=== PATIENT | female | born 1960 | race Caucasian/White ===

== ENCOUNTER 2017-12-15 02:22 | Outpatient (RCR) | payer MEDICAID, SELFPAY ==
[2017-12-15] MEDS: Normal Saline Flush 10 ML SYR IVP (11:45)
[2017-12-15] MEDS: Heparin 500 UNITS/5 ML SYRINGE IV (11:45)
[2017-12-15 11:59] LABS: Abs Immature Grans 0.02 k/cumm (0.0-0.09); Absolute Basophil Count 0.05 k/cumm (0.0-0.2); Absolute Eosinophil Count 0.35 k/cumm (0.0-0.7); Absolute Lymphocyte Count 3.07 k/cumm (1.2-3.4); Absolute Monocyte Count 0.82 k/cumm (0.11-0.7); Absolute Neutrophil Count 5.37 k/cumm (1.2-6.7); Basophils % 0.5; Eosinophils % 3.6; HCT 36.2 % (36.0-46.0); HGB 11.4 g/dL (12.0-15.5); Immature Grans % 0.2; Lymphocytes % 31.7; Mean Corp. HGB Concentration 31.5 g/dL (32.0-36.0); Mean Corpuscular Volume 85.6 fL (80-95); Mean Platelet Volume 8.9 fL (8.0-11.0); Monocytes % 8.5; Neutrophils % 55.5; RBC 4.23 m/cumm (4.00-5.20); RBC Distribution Width 14.8 % (11.7-14.6); White Blood Cell Count 9.68 k/cumm (4.4-10.8)
[2017-12-15 12:15] LABS: ALT 18 U/L (12-78); AST 17 U/L (15-37); Albumin 3.2 g/dL (3.4-5.0); Alkaline Phosphatase 98 U/L (46-116); Anion Gap 7.2 mmol/L (3-11); BUN 26 mg/dL (7-18); Bilirubin, Total 0.2 mg/dL (0.2-1.0); CO2 31.8 mmol/L (21.0-32.0); Chloride 100 mmol/L (98-107); Sodium 139 mmol/L (136-145); Total Protein 8.1 g/dL (6.4-8.2)
[2017-12-15 12:26] LABS: Platelet Count 651 x1000/uL (130-400)
[2017-12-15 12:30] LABS: Glucose 56 mg/dL (70-100)
== END 2018-01-01 ==
LOC: INF 02:22
PROVIDERS: PCP Family Medicine; Visit Provider Internal Medicine Medical Oncology
DX: C25.0 Malignant neoplasm of head of pancreas (principal); Z45.2 Encounter for adjustment and management of vascular access device
CPT/HCPCS: 36591; 80053; 85025

== ENCOUNTER 2018-01-21 01:04 | Outpatient (RCR) | payer MEDICAID, SELFPAY ==
[2018-01-14] MEDS: Normal Saline Flush 10 ML SYR IVP (08:50)
[2018-01-14 09:17] LABS: Abs Immature Grans 0.01 k/cumm (0.0-0.09); Absolute Basophil Count 0.02 k/cumm (0.0-0.2); Absolute Lymphocyte Count 2.23 k/cumm (1.2-3.4); Absolute Monocyte Count 0.38 k/cumm (0.11-0.7); Absolute Neutrophil Count 2.49 k/cumm (1.2-6.7); Basophils % 0.4; Eosinophils % 1.9; HCT 33.3 % (36.0-46.0); HGB 10.6 g/dL (12.0-15.5); Immature Grans % 0.2; Lymphocytes % 42.6; Mean Corp. HGB Concentration 31.8 g/dL (32.0-36.0); Mean Corpuscular Hemoglobin 26.8 pg (27.0-33.0); Mean Corpuscular Volume 84.1 fL (80-95); Mean Platelet Volume 8.6 fL (8.0-11.0); Monocytes % 7.3; Neutrophils % 47.6; Platelet Count 452 x1000/uL (130-400); RBC 3.96 m/cumm (4.00-5.20); RBC Distribution Width 14.1 % (11.7-14.6); White Blood Cell Count 5.23 k/cumm (4.4-10.8)
[2018-01-14 09:32] LABS: ALT 44 U/L (12-78); AST 30 U/L (15-37); Alkaline Phosphatase 439 U/L (46-116); Anion Gap 8.1 mmol/L (3-11); BUN 11 mg/dL (7-18); Bilirubin, Total 0.4 mg/dL (0.2-1.0); CO2 30.9 mmol/L (21.0-32.0); CREATININE 0.76 mg/dL (0.55-1.02); Chloride 99 mmol/L (98-107); Glucose 141 mg/dL (70-100); Potassium 4.2 mmol/L (3.5-5.1); Sodium 138 mmol/L (136-145); Total Protein 8.1 g/dL (6.4-8.2)
[2018-01-15 10:08] LABS: CA 19-9 22 U/mL (<35)
[2018-01-21] MEDS: Normal Saline Flush 10 ML SYR IVP (10:45)
[2018-01-21 11:01] LABS: Abs Immature Grans 0.01 k/cumm (0.0-0.09); Absolute Basophil Count 0.01 k/cumm (0.0-0.2); Absolute Lymphocyte Count 1.99 k/cumm (1.2-3.4); Absolute Monocyte Count 0.54 k/cumm (0.11-0.7); Absolute Neutrophil Count 3.18 k/cumm (1.2-6.7); Basophils % 0.2; Eosinophils % 1.7; HCT 31.8 % (36.0-46.0); HGB 10.3 g/dL (12.0-15.5); Immature Grans % 0.2; Lymphocytes % 34.1; Mean Corp. HGB Concentration 32.4 g/dL (32.0-36.0); Mean Corpuscular Hemoglobin 27.5 pg (27.0-33.0); Mean Corpuscular Volume 84.8 fL (80-95); Mean Platelet Volume 8.2 fL (8.0-11.0); Monocytes % 9.3; Neutrophils % 54.5; Platelet Count 188 x1000/uL (130-400); RBC 3.75 m/cumm (4.00-5.20); RBC Distribution Width 13.5 % (11.7-14.6); White Blood Cell Count 5.83 k/cumm (4.4-10.8)
[2018-01-21 11:23] LABS: ALT 78 U/L (12-78); AST 59 U/L (15-37); Alkaline Phosphatase 423 U/L (46-116); Anion Gap 8.1 mmol/L (3-11); BUN 17 mg/dL (7-18); Bilirubin, Total 0.2 mg/dL (0.2-1.0); CO2 28.9 mmol/L (21.0-32.0); CREATININE 0.76 mg/dL (0.55-1.02); Chloride 101 mmol/L (98-107); Glucose 124 mg/dL (70-100); Potassium 3.9 mmol/L (3.5-5.1); Sodium 138 mmol/L (136-145); Total Protein 7.7 g/dL (6.4-8.2)
== END 2018-01-31 23:59 | disposition home or self-care (01) ==
LOC: INF 01:04
PROVIDERS: PCP Family Medicine; Visit Provider Internal Medicine Medical Oncology
DX: C25.0 Malignant neoplasm of head of pancreas (principal); Z45.2 Encounter for adjustment and management of vascular access device
CPT/HCPCS: 36591; 80053; 85025; 86301

== ENCOUNTER 2018-02-18 01:49 | Outpatient (RCR) | payer MEDICAID, SELFPAY ==
[2018-02-04] MEDS: Normal Saline Flush 10 ML SYR IVP (08:50)
[2018-02-04 09:21] LABS: Abs Immature Grans 0.04 k/cumm (0.0-0.09); Absolute Basophil Count 0.03 k/cumm (0.0-0.2); Absolute Lymphocyte Count 2.55 k/cumm (1.2-3.4); Absolute Monocyte Count 1.43 k/cumm (0.11-0.7); Absolute Neutrophil Count 6.03 k/cumm (1.2-6.7); Basophils % 0.3; HCT 35.7 % (36.0-46.0); HGB 11.3 g/dL (12.0-15.5); Immature Grans % 0.4; Mean Corp. HGB Concentration 31.7 g/dL (32.0-36.0); Mean Corpuscular Volume 88.4 fL (80-95); Mean Platelet Volume 9.4 fL (8.0-11.0); Neutrophils % 59.3; RBC 4.04 m/cumm (4.00-5.20); White Blood Cell Count 10.18 k/cumm (4.4-10.8)
[2018-02-04 09:39] LABS: ALT 43 U/L (12-78); AST 58 U/L (15-37); Albumin 3.2 g/dL (3.4-5.0); Alkaline Phosphatase 477 U/L (46-116); Anion Gap 8.5 mmol/L (3-11); BUN 17 mg/dL (7-18); Bilirubin, Total 0.2 mg/dL (0.2-1.0); CO2 31.5 mmol/L (21.0-32.0); CREATININE 0.96 mg/dL (0.55-1.02); Calcium 9.3 mg/dL (8.5-10.1); Chloride 97 mmol/L (98-107); Glucose 130 mg/dL (70-100); Potassium 4.3 mmol/L (3.5-5.1); Sodium 137 mmol/L (136-145); Total Protein 8.4 g/dL (6.4-8.2)
[2018-02-04 09:46] LABS: Platelet Count 865 x1000/uL (130-400)
[2018-02-05 15:09] LABS: CA 19-9 26 U/mL (<35)
[2018-02-11] MEDS: Normal Saline Flush 10 ML SYR IVP (10:00)
[2018-02-11 10:15] LABS: Abs Immature Grans 0.01 k/cumm (0.0-0.09); Absolute Basophil Count 0.03 k/cumm (0.0-0.2); Absolute Eosinophil Count 0.09 k/cumm (0.0-0.7); Absolute Lymphocyte Count 3.11 k/cumm (1.2-3.4); Absolute Monocyte Count 0.84 k/cumm (0.11-0.7); Absolute Neutrophil Count 2.49 k/cumm (1.2-6.7); Basophils % 0.5; Eosinophils % 1.4; HCT 34.9 % (36.0-46.0); HGB 11.1 g/dL (12.0-15.5); Immature Grans % 0.2; Lymphocytes % 47.3; Mean Corp. HGB Concentration 31.8 g/dL (32.0-36.0); Mean Corpuscular Volume 87.9 fL (80-95); Mean Platelet Volume 8.4 fL (8.0-11.0); Monocytes % 12.8; Neutrophils % 37.8; RBC 3.97 m/cumm (4.00-5.20); RBC Distribution Width 16.5 % (11.7-14.6); White Blood Cell Count 6.57 k/cumm (4.4-10.8)
[2018-02-11 10:29] LABS: ALT 63 U/L (12-78); AST 42 U/L (15-37); Albumin 3.3 g/dL (3.4-5.0); Alkaline Phosphatase 398 U/L (46-116); Anion Gap 7.4 mmol/L (3-11); BUN 12 mg/dL (7-18); Bilirubin, Total 0.3 mg/dL (0.2-1.0); CO2 31.6 mmol/L (21.0-32.0); CREATININE 0.77 mg/dL (0.55-1.02); Calcium 9.5 mg/dL (8.5-10.1); Chloride 102 mmol/L (98-107); Glucose 73 mg/dL (70-100); Potassium 4.1 mmol/L (3.5-5.1); Sodium 141 mmol/L (136-145); Total Protein 8.6 g/dL (6.4-8.2)
[2018-02-11 10:50] LABS: Platelet Count 996 x1000/uL (130-400)
[2018-02-11 10:51] LABS: Anisocytosis 2+; Diff Comment PLT Morph Reviewed; Hypochromasia 1+; Macrocytosis 1+; Polychromasia Present
[2018-02-11 10:52] LABS: Poikilocytes 1+
[2018-02-11 17:38] LABS: Ferritin 165 ng/mL (8-388)
[2018-02-18] MEDS: Normal Saline Flush 10 ML SYR IVP (10:25)
[2018-02-18 10:58] LABS: Absolute Basophil Count 0.05 k/cumm (0.0-0.2); Absolute Eosinophil Count 0.31 k/cumm (0.0-0.7); Basophils % 0.4; Eosinophils % 2.4; HCT 30.8 % (36.0-46.0); Immature Grans % 0.8; Lymphocytes % 25.2; Mean Corp. HGB Concentration 32.5 g/dL (32.0-36.0); Mean Corpuscular Hemoglobin 28.6 pg (27.0-33.0); Mean Platelet Volume 8.8 fL (8.0-11.0); Monocytes % 9.9; Neutrophils % 61.3; Platelet Count 341 x1000/uL (130-400); RBC Distribution Width 17.1 % (11.7-14.6); White Blood Cell Count 13.09 k/cumm (4.4-10.8)
[2018-02-18 11:01] LABS: Absolute Neutrophil Count 8.02 k/cumm (1.2-6.7)
[2018-02-18 11:12] LABS: ALT 40 U/L (12-78); AST 31 U/L (15-37); Alkaline Phosphatase 317 U/L (46-116); Anion Gap 9.8 mmol/L (3-11); BUN 13 mg/dL (7-18); Bilirubin, Total 0.3 mg/dL (0.2-1.0); CO2 28.2 mmol/L (21.0-32.0); CREATININE 0.77 mg/dL (0.55-1.02); Calcium 8.8 mg/dL (8.5-10.1); Chloride 101 mmol/L (98-107); Glucose 161 mg/dL (70-100); Potassium 3.7 mmol/L (3.5-5.1); Sodium 139 mmol/L (136-145); Total Protein 7.6 g/dL (6.4-8.2)
== END 2018-03-03 23:59 | disposition home or self-care (01) ==
LOC: INF 01:49
PROVIDERS: PCP Family Medicine; Visit Provider Internal Medicine Medical Oncology
DX: C25.0 Malignant neoplasm of head of pancreas (principal); Z45.2 Encounter for adjustment and management of vascular access device
CPT/HCPCS: 36591; 80053; 82728; 85025; 86301

== ENCOUNTER 2018-04-01 13:00 | Outpatient (RCR) | payer MEDICAID, SELFPAY ==
[2018-03-04] MEDS: Normal Saline Flush 10 ML SYR IVP (09:40)
[2018-03-04 09:59] LABS: Abs Immature Grans 0.03 k/cumm (0.0-0.09); HCT 33.7 % (36.0-46.0); HGB 10.8 g/dL (12.0-15.5); Mean Corpuscular Volume 90.6 fL (80-95); Mean Platelet Volume 8.9 fL (8.0-11.0); RBC 3.72 m/cumm (4.00-5.20); RBC Distribution Width 21.5 % (11.7-14.6); White Blood Cell Count 9.55 k/cumm (4.4-10.8)
[2018-03-04 10:11] LABS: ALT 37 U/L (12-78); AST 38 U/L (15-37); Albumin 3.2 g/dL (3.4-5.0); Alkaline Phosphatase 364 U/L (46-116); Anion Gap 8.5 mmol/L (3-11); BUN 15 mg/dL (7-18); Bilirubin, Total 0.4 mg/dL (0.2-1.0); CO2 29.5 mmol/L (21.0-32.0); CREATININE 0.99 mg/dL (0.55-1.02); Chloride 97 mmol/L (98-107); Estimated GFR 58.02 (mL/min/1.73m2); Glucose 278 mg/dL (70-100); Potassium 4.5 mmol/L (3.5-5.1); Sodium 135 mmol/L (136-145); Total Protein 7.9 g/dL (6.4-8.2)
[2018-03-04 10:18] LABS: Absolute Eosinophil Count 0.48 k/cumm (0.0-0.7); Absolute Lymphocyte Count 3.15 k/cumm (1.2-3.4); Absolute Monocyte Count 1.34 k/cumm (0.11-0.7); Absolute Neutrophil Count 4.49 k/cumm (1.2-6.7); Atypical Lymphocytes % 2
[2018-03-04 10:19] LABS: Platelet Count 928 x1000/uL (130-400)
[2018-03-04 10:21] LABS: Diff Comment Manual Differential
[2018-03-04 10:22] LABS: Anisocytosis 3+; Polychromasia Present
[2018-03-11] MEDS: Normal Saline Flush 10 ML SYR IVP (10:45)
[2018-03-11 11:06] LABS: Abs Immature Grans 0.03 k/cumm (0.0-0.09); Absolute Basophil Count 0.05 k/cumm (0.0-0.2); Absolute Eosinophil Count 0.06 k/cumm (0.0-0.7); Absolute Lymphocyte Count 3.01 k/cumm (1.2-3.4); Absolute Monocyte Count 0.98 k/cumm (0.11-0.7); Absolute Neutrophil Count 5.75 k/cumm (1.2-6.7); Basophils % 0.5; Eosinophils % 0.6; HCT 31.8 % (36.0-46.0); HGB 10.3 g/dL (12.0-15.5); Immature Grans % 0.3; Lymphocytes % 30.5; Mean Corp. HGB Concentration 32.4 g/dL (32.0-36.0); Mean Corpuscular Hemoglobin 29.3 pg (27.0-33.0); Mean Corpuscular Volume 90.6 fL (80-95); Mean Platelet Volume 8.7 fL (8.0-11.0); Monocytes % 9.9; Neutrophils % 58.2; RBC 3.51 m/cumm (4.00-5.20); RBC Distribution Width 20.2 % (11.7-14.6); White Blood Cell Count 9.88 k/cumm (4.4-10.8)
[2018-03-11 11:27] LABS: ALT 54 U/L (12-78); AST 39 U/L (15-37); Albumin 3.2 g/dL (3.4-5.0); Alkaline Phosphatase 353 U/L (46-116); Anion Gap 11.1 mmol/L (3-11); BUN 13 mg/dL (7-18); Bilirubin, Total 0.5 mg/dL (0.2-1.0); CO2 27.9 mmol/L (21.0-32.0); CREATININE 0.91 mg/dL (0.55-1.02); Calcium 9.2 mg/dL (8.5-10.1); Chloride 96 mmol/L (98-107); Glucose 278 mg/dL (70-100); Potassium 4.1 mmol/L (3.5-5.1); Sodium 135 mmol/L (136-145); Total Protein 7.7 g/dL (6.4-8.2)
[2018-03-11 11:36] LABS: Anisocytosis 2+; Diff Comment RBC Morph Reviewed; Platelet Count 882 x1000/uL (130-400)
[2018-03-11 11:37] LABS: Hypochromasia 2+
[2018-03-12 10:00] LABS: CA 19-9 17 U/mL (<35)
[2018-03-18] MEDS: Normal Saline Flush 10 ML SYR IVP (09:05)
[2018-03-18 09:30] LABS: Abs Immature Grans 0.03 k/cumm (0.0-0.09); Absolute Basophil Count 0.06 k/cumm (0.0-0.2); Absolute Eosinophil Count 0.02 k/cumm (0.0-0.7); Absolute Lymphocyte Count 3.24 k/cumm (1.2-3.4); Absolute Monocyte Count 0.81 k/cumm (0.11-0.7); Absolute Neutrophil Count 2.31 k/cumm (1.2-6.7); Basophils % 0.9; Eosinophils % 0.3; HCT 30.8 % (36.0-46.0); HGB 9.8 g/dL (12.0-15.5); Immature Grans % 0.5; Lymphocytes % 50.1; Mean Corp. HGB Concentration 31.8 g/dL (32.0-36.0); Mean Corpuscular Hemoglobin 29.1 pg (27.0-33.0); Mean Corpuscular Volume 91.4 fL (80-95); Mean Platelet Volume 8.8 fL (8.0-11.0); Monocytes % 12.5; Neutrophils % 35.7; Platelet Count 461 x1000/uL (130-400); RBC 3.37 m/cumm (4.00-5.20); RBC Distribution Width 20.9 % (11.7-14.6); White Blood Cell Count 6.47 k/cumm (4.4-10.8)
[2018-03-18 09:41] LABS: ALT 58 U/L (12-78); AST 38 U/L (15-37); Albumin 3.5 g/dL (3.4-5.0); Alkaline Phosphatase 264 U/L (46-116); Anion Gap 10.5 mmol/L (3-11); BUN 13 mg/dL (7-18); Bilirubin, Total 0.4 mg/dL (0.2-1.0); CO2 27.5 mmol/L (21.0-32.0); CREATININE 0.86 mg/dL (0.55-1.02); Calcium 9.5 mg/dL (8.5-10.1); Chloride 98 mmol/L (98-107); Glucose 146 mg/dL (70-100); Potassium 3.9 mmol/L (3.5-5.1); Sodium 136 mmol/L (136-145); Total Protein 7.8 g/dL (6.4-8.2)
[2018-04-01] MEDS: Normal Saline Flush 10 ML SYR IVP ×2 (10:30→13:20)
[2018-04-01 10:42] LABS: Abs Immature Grans 0.04 k/cumm (0.0-0.09); Absolute Basophil Count 0.04 k/cumm (0.0-0.2); Absolute Eosinophil Count 0.37 k/cumm (0.0-0.7); Absolute Lymphocyte Count 1.74 k/cumm (1.2-3.4); Absolute Monocyte Count 1.57 k/cumm (0.11-0.7); Absolute Neutrophil Count 10.39 k/cumm (1.2-6.7); Basophils % 0.3; Eosinophils % 2.6; HCT 32.4 % (36.0-46.0); HGB 10.5 g/dL (12.0-15.5); Immature Grans % 0.3; Lymphocytes % 12.3; Mean Corp. HGB Concentration 32.4 g/dL (32.0-36.0); Mean Corpuscular Hemoglobin 30.3 pg (27.0-33.0); Mean Corpuscular Volume 93.4 fL (80-95); Mean Platelet Volume 9.2 fL (8.0-11.0); Monocytes % 11.1; Neutrophils % 73.4; RBC 3.47 m/cumm (4.00-5.20); RBC Distribution Width 24.9 % (11.7-14.6); White Blood Cell Count 14.15 k/cumm (4.4-10.8)
[2018-04-01 10:51] LABS: Platelet Count 1060 x1000/uL (130-400)
[2018-04-01 10:58] LABS: ALT 36 U/L (12-78); AST 48 U/L (15-37); Albumin 3.4 g/dL (3.4-5.0); Alkaline Phosphatase 281 U/L (46-116); Anion Gap 11.2 mmol/L (3-11); BUN 15 mg/dL (7-18); Bilirubin, Total 0.4 mg/dL (0.2-1.0); CO2 25.8 mmol/L (21.0-32.0); CREATININE 0.89 mg/dL (0.55-1.02); Calcium 9.1 mg/dL (8.5-10.1); Chloride 99 mmol/L (98-107); Glucose 161 mg/dL (70-100); Potassium 3.8 mmol/L (3.5-5.1); Sodium 136 mmol/L (136-145)
[2018-04-05 13:44] LABS: JAK2 Result see interpretation
== END 2018-04-02 23:59 | disposition home or self-care (01) ==
LOC: INF 13:00
PROVIDERS: PCP Family Medicine; Visit Provider Internal Medicine Medical Oncology
DX: C25.0 Malignant neoplasm of head of pancreas (principal); D47.3 Essential (hemorrhagic) thrombocythemia; Z45.2 Encounter for adjustment and management of vascular access device
CPT/HCPCS: 36591; 80053; 96523; 81270; 85025; 86301

== ENCOUNTER 2018-04-01 13:06 | Outpatient (CLI) | payer MEDICAID, SELFPAY ==
--- NOTE | 2018-04-01 12:37 | DI.COMBO_ITS ---
SYMPTOMS/DIAGNOSIS: PANCREATIC CA, C25.0, SHORTNESS OF BREATH ON EXERTION, HIGH PLATELET COUNT, ? PE OR INFECTION CT ANGIOGRAPHY CHEST: CT angiography was performed with multi slice acquisition and multi planar and 3D reconstruction. CT Angiography of the chest was performed with intravenous infusion of 126 cc's of Omnipaque 350. Images obtained through the upper abdomen show markedly heterogeneous hepatic uptake, consider diffuse metastatic disease. No previous images available for comparison. The patient reportedly has a history of pancreatic carcinoma. There is no evidence of pulmonary embolic disease. No thoracic aortic aneurysm or dissection. No pleural effusion seen. There is a smooth 16 mm in diameter pleural based mass of the left upper lobe. There is a spiculated and probably cavitated mass of the right lung apex, scarring vs metastasis. There are a number of other subtle areas of nodularity in the right upper lobe, none measuring over 5 mm in diameter. A right lower lobe poorly defined nodule is also present. Scattered tree and bud opacities are present in the right lung and left lung which are nonspecific. There is a calcified left upper lobe pulmonary granuloma. No mediastinal or hilar adenopathy. The tracheobronchial tree appears intact. CONCLUSION: 1. No evidence of pulmonary embolic disease. 2. Findings consistent with hepatic metastasis, please correlate with previous examinations. 3. Multi-focal lung findings suspicious for metastatic disease, the most prominent a 14 mm in diameter spiculated probably cavitated right lung apical lesion and a 16 mm in diameter left upper lobe pleural based mass. PA AND LATERAL CHEST: The heart is not enlarged. The lungs are predominantly clear with some faint radiodensities in the right lung apex, these correlate with spiculated cavitating lesion identified on CT. Comparison with previous examination suggested. Left subclavian indwelling catheter noted. The tip of which lies in the SVC. No other focal abnormality seen.
[2018-04-01] MEDS: Omnipaque 350 MG/ML 100 ML BTL IJ (13:37)
== END 2018-04-01 13:26 ==
PROVIDERS: PCP Family Medicine; Visit Provider Nurse Practitioner Adult Health
DX: C25.0 Malignant neoplasm of head of pancreas (principal); C78.7 Secondary malignant neoplasm of liver and intrahepatic bile duct; R06.02 Shortness of breath; D47.3 Essential (hemorrhagic) thrombocythemia; C78.01 Secondary malignant neoplasm of right lung; C78.02 Secondary malignant neoplasm of left lung; R91.8 Other nonspecific abnormal finding of lung field
CPT/HCPCS: 71275; 71046; J3490

== ENCOUNTER 2018-04-01 13:23 | Outpatient (RCR) | payer MEDICAID, SELFPAY | END 2018-04-02 23:59 | disposition home or self-care (01) | LOC: INF 13:23 | PROVIDERS: PCP Family Medicine; Visit Provider Internal Medicine Medical Oncology | DX: R69 Illness, unspecified (principal) ==

== ENCOUNTER 2018-04-29 02:05 | Outpatient (RCR) | payer MEDICAID, SELFPAY ==
[2018-04-22] MEDS: Normal Saline Flush 10 ML SYR IVP (09:49)
[2018-04-22 09:58] LABS: Abs Immature Grans 0.03 k/cumm (0.0-0.09); Absolute Basophil Count 0.13 k/cumm (0.0-0.2); Absolute Eosinophil Count 1.03 k/cumm (0.0-0.7); Absolute Monocyte Count 1.16 k/cumm (0.11-0.7); Absolute Neutrophil Count 5.93 k/cumm (1.2-6.7); Basophils % 1.1; Eosinophils % 8.7; HCT 35.3 % (36.0-46.0); HGB 11.1 g/dL (12.0-15.5); Immature Grans % 0.3; Lymphocytes % 29.9; Mean Corp. HGB Concentration 31.4 g/dL (32.0-36.0); Mean Corpuscular Hemoglobin 29.7 pg (27.0-33.0); Mean Corpuscular Volume 94.4 fL (80-95); Mean Platelet Volume 9.8 fL (8.0-11.0); Monocytes % 9.8; Neutrophils % 50.2; RBC 3.74 m/cumm (4.00-5.20); White Blood Cell Count 11.82 k/cumm (4.4-10.8)
[2018-04-22 10:03] LABS: Absolute Lymphocyte Count 3.53 k/cumm (1.2-3.4)
[2018-04-22 10:10] LABS: ALT 23 U/L (12-78); AST 22 U/L (15-37); Albumin 3.1 g/dL (3.4-5.0); Alkaline Phosphatase 351 U/L (46-116); Anion Gap 8.3 mmol/L (3-11); BUN 16 mg/dL (7-18); Bilirubin, Total 0.2 mg/dL (0.2-1.0); CO2 29.7 mmol/L (21.0-32.0); CREATININE 0.74 mg/dL (0.55-1.02); Chloride 101 mmol/L (98-107); Glucose 159 mg/dL (70-100); Potassium 4.1 mmol/L (3.5-5.1); Sodium 139 mmol/L (136-145); Total Protein 7.9 g/dL (6.4-8.2)
[2018-04-22 10:29] LABS: Anisocytosis 2+; Diff Comment Agrees w/ Instrument; Hypochromasia 1+; Platelet Count 427 x1000/uL (130-400); Polychromasia Present
[2018-04-29] MEDS: Normal Saline Flush 10 ML SYR IVP (09:08)
[2018-04-29 09:26] LABS: Abs Immature Grans 0.01 k/cumm (0.0-0.09); Absolute Basophil Count 0.05 k/cumm (0.0-0.2); Absolute Eosinophil Count 0.64 k/cumm (0.0-0.7); Absolute Monocyte Count 0.63 k/cumm (0.11-0.7); Absolute Neutrophil Count 1.58 k/cumm (1.2-6.7); Basophils % 0.8; Eosinophils % 10.1; HCT 33.6 % (36.0-46.0); HGB 10.6 g/dL (12.0-15.5); Immature Grans % 0.2; Lymphocytes % 53.9; Mean Corp. HGB Concentration 31.5 g/dL (32.0-36.0); Mean Corpuscular Hemoglobin 29.6 pg (27.0-33.0); Mean Corpuscular Volume 93.9 fL (80-95); Mean Platelet Volume 9.7 fL (8.0-11.0); Platelet Count 325 x1000/uL (130-400); RBC 3.58 m/cumm (4.00-5.20); White Blood Cell Count 6.31 k/cumm (4.4-10.8)
[2018-04-29 09:40] LABS: ALT 32 U/L (12-78); AST 32 U/L (15-37); Albumin 3.1 g/dL (3.4-5.0); Alkaline Phosphatase 291 U/L (46-116); Anion Gap 8.2 mmol/L (3-11); BUN 13 mg/dL (7-18); Bilirubin, Total 0.2 mg/dL (0.2-1.0); CO2 30.8 mmol/L (21.0-32.0); CREATININE 0.82 mg/dL (0.55-1.02); Calcium 9.1 mg/dL (8.5-10.1); Chloride 100 mmol/L (98-107); Glucose 116 mg/dL (70-100); Potassium 3.9 mmol/L (3.5-5.1); Sodium 139 mmol/L (136-145)
== END 2018-05-03 23:59 | disposition home or self-care (01) ==
LOC: INF 02:05
PROVIDERS: Internal Medicine Hematology & Oncology; PCP Family Medicine; Visit Provider Nurse Practitioner Adult Health
DX: C25.0 Malignant neoplasm of head of pancreas (principal); Z45.2 Encounter for adjustment and management of vascular access device
CPT/HCPCS: 36591; 80053; 85025

== ENCOUNTER 2018-06-03 01:29 | Outpatient (RCR) | payer MEDICAID, SELFPAY ==
[2018-05-07] MEDS: Normal Saline Flush 10 ML SYR IVP (09:46)
[2018-05-07 09:56] LABS: Abs Immature Grans 0.03 k/cumm (0.0-0.09); Absolute Basophil Count 0.01 k/cumm (0.0-0.2); Absolute Eosinophil Count 0.23 k/cumm (0.0-0.7); Absolute Lymphocyte Count 2.76 k/cumm (1.2-3.4); Absolute Monocyte Count 0.61 k/cumm (0.11-0.7); Absolute Neutrophil Count 3.81 k/cumm (1.2-6.7); Basophils % 0.1; Eosinophils % 3.1; HCT 31.5 % (36.0-46.0); HGB 10.1 g/dL (12.0-15.5); Immature Grans % 0.4; Mean Corp. HGB Concentration 32.1 g/dL (32.0-36.0); Mean Corpuscular Hemoglobin 30.1 pg (27.0-33.0); Mean Corpuscular Volume 93.8 fL (80-95); Mean Platelet Volume 9.8 fL (8.0-11.0); Monocytes % 8.2; Neutrophils % 51.2; Platelet Count 226 x1000/uL (130-400); RBC 3.36 m/cumm (4.00-5.20); RBC Distribution Width 18.7 % (11.7-14.6); White Blood Cell Count 7.45 k/cumm (4.4-10.8)
[2018-05-07 10:07] LABS: ALT 31 U/L (12-78); AST 22 U/L (15-37); Alkaline Phosphatase 254 U/L (46-116); Anion Gap 7.5 mmol/L (3-11); BUN 18 mg/dL (7-18); Bilirubin, Total 0.2 mg/dL (0.2-1.0); CO2 30.5 mmol/L (21.0-32.0); Chloride 103 mmol/L (98-107); Glucose 75 mg/dL (70-100); Potassium 3.6 mmol/L (3.5-5.1); Sodium 141 mmol/L (136-145); Total Protein 7.6 g/dL (6.4-8.2)
[2018-05-20] MEDS: Normal Saline Flush 10 ML SYR IVP (09:55)
[2018-05-20 09:57] LABS: Abs Immature Grans 0.02 k/cumm (0.0-0.09); Absolute Basophil Count 0.04 k/cumm (0.0-0.2); Absolute Eosinophil Count 0.32 k/cumm (0.0-0.7); Absolute Monocyte Count 1.66 k/cumm (0.11-0.7); Absolute Neutrophil Count 4.55 k/cumm (1.2-6.7); Basophils % 0.4; Eosinophils % 3.5; HCT 31.9 % (36.0-46.0); HGB 10.1 g/dL (12.0-15.5); Immature Grans % 0.2; Lymphocytes % 28.3; Mean Corp. HGB Concentration 31.7 g/dL (32.0-36.0); Mean Corpuscular Hemoglobin 29.4 pg (27.0-33.0); Mean Corpuscular Volume 92.7 fL (80-95); Monocytes % 18.1; Neutrophils % 49.5; RBC 3.44 m/cumm (4.00-5.20); RBC Distribution Width 19.2 % (11.7-14.6); White Blood Cell Count 9.19 k/cumm (4.4-10.8)
[2018-05-20 10:11] LABS: Platelet Count 835 x1000/uL (130-400)
[2018-05-20 10:21] LABS: Diff Comment Agrees w/ Instrument; Hypochromasia 1+; Macrocytosis 1+
[2018-05-20 10:23] LABS: ALT 31 U/L (12-78); AST 22 U/L (15-37); Albumin 2.8 g/dL (3.4-5.0); Alkaline Phosphatase 418 U/L (46-116); Anion Gap 7.4 mmol/L (3-11); BUN 12 mg/dL (7-18); Bilirubin, Total 0.2 mg/dL (0.2-1.0); CO2 30.6 mmol/L (21.0-32.0); CREATININE 0.81 mg/dL (0.55-1.02); Calcium 8.8 mg/dL (8.5-10.1); Chloride 102 mmol/L (98-107); Glucose 107 mg/dL (70-100); Potassium 4.2 mmol/L (3.5-5.1); Sodium 140 mmol/L (136-145); Total Protein 7.3 g/dL (6.4-8.2)
[2018-05-27] MEDS: Normal Saline Flush 10 ML SYR IVP (10:47)
[2018-05-27 11:00] LABS: Abs Immature Grans 0.02 k/cumm (0.0-0.09); Absolute Basophil Count 0.05 k/cumm (0.0-0.2); Absolute Eosinophil Count 0.12 k/cumm (0.0-0.7); Absolute Lymphocyte Count 2.64 k/cumm (1.2-3.4); Absolute Monocyte Count 0.89 k/cumm (0.11-0.7); Absolute Neutrophil Count 2.15 k/cumm (1.2-6.7); Basophils % 0.9; HCT 31.6 % (36.0-46.0); Immature Grans % 0.3; Mean Corp. HGB Concentration 31.6 g/dL (32.0-36.0); Mean Corpuscular Hemoglobin 29.1 pg (27.0-33.0); Mean Corpuscular Volume 91.9 fL (80-95); Mean Platelet Volume 9.1 fL (8.0-11.0); Monocytes % 15.2; Neutrophils % 36.6; RBC 3.44 m/cumm (4.00-5.20); RBC Distribution Width 19.3 % (11.7-14.6); White Blood Cell Count 5.87 k/cumm (4.4-10.8)
[2018-05-27 11:12] LABS: ALT 76 U/L (12-78); AST 61 U/L (15-37); Albumin 2.9 g/dL (3.4-5.0); Alkaline Phosphatase 367 U/L (46-116); Anion Gap 6.5 mmol/L (3-11); BUN 17 mg/dL (7-18); Bilirubin, Total 0.2 mg/dL (0.2-1.0); CO2 29.5 mmol/L (21.0-32.0); CREATININE 0.82 mg/dL (0.55-1.02); Calcium 8.8 mg/dL (8.5-10.1); Chloride 102 mmol/L (98-107); Glucose 147 mg/dL (70-100); Potassium 4.4 mmol/L (3.5-5.1); Sodium 138 mmol/L (136-145); Total Protein 7.5 g/dL (6.4-8.2)
[2018-05-27 11:34] LABS: Anisocytosis 2+; Diff Comment RBC Morph Reviewed; Hypochromasia 1+; Polychromasia Present
[2018-05-27 11:35] LABS: Platelet Count 863 x1000/uL (130-400)
[2018-06-03] MEDS: Normal Saline Flush 10 ML SYR IVP (10:13)
[2018-06-03 10:28] LABS: Abs Immature Grans 0.03 k/cumm (0.0-0.09); Absolute Basophil Count 0.01 k/cumm (0.0-0.2); Absolute Eosinophil Count 0.03 k/cumm (0.0-0.7); Basophils % 0.1; Eosinophils % 0.3; HCT 31.6 % (36.0-46.0); HGB 10.1 g/dL (12.0-15.5); Immature Grans % 0.3; Lymphocytes % 19.4; Mean Corpuscular Hemoglobin 28.6 pg (27.0-33.0); Mean Corpuscular Volume 89.5 fL (80-95); Mean Platelet Volume 9.5 fL (8.0-11.0); Monocytes % 9.2; Neutrophils % 70.7; Platelet Count 266 x1000/uL (130-400); RBC 3.53 m/cumm (4.00-5.20); White Blood Cell Count 9.77 k/cumm (4.4-10.8)
[2018-06-03 10:41] LABS: ALT 112 U/L (12-78); AST 89 U/L (15-37); Alkaline Phosphatase 634 U/L (46-116); Anion Gap 9.5 mmol/L (3-11); BUN 15 mg/dL (7-18); Bilirubin, Total 0.3 mg/dL (0.2-1.0); CO2 28.5 mmol/L (21.0-32.0); CREATININE 0.89 mg/dL (0.55-1.02); Calcium 9.1 mg/dL (8.5-10.1); Chloride 101 mmol/L (98-107); Glucose 55 mg/dL (70-100); Potassium 3.7 mmol/L (3.5-5.1); Sodium 139 mmol/L (136-145)
== END 2018-06-03 23:59 | disposition home or self-care (01) ==
LOC: INF 01:29
PROVIDERS: PCP Family Medicine; Visit Provider Internal Medicine Hematology & Oncology
DX: C25.0 Malignant neoplasm of head of pancreas (principal); Z45.2 Encounter for adjustment and management of vascular access device
CPT/HCPCS: 36591; 80053; 85025

== ENCOUNTER 2018-06-24 00:37 | Outpatient (RCR) | payer MEDICAID, SELFPAY ==
[2018-06-17] MEDS: Normal Saline Flush 10 ML SYR IVP (10:47)
[2018-06-17 10:58] LABS: HCT 31.1 % (36.0-46.0); HGB 9.9 g/dL (12.0-15.5); Mean Corp. HGB Concentration 31.8 g/dL (32.0-36.0); Mean Corpuscular Volume 88.1 fL (80-95); Mean Platelet Volume 9.2 fL (8.0-11.0); RBC 3.53 m/cumm (4.00-5.20); RBC Distribution Width 20.1 % (11.7-14.6)
[2018-06-17 11:17] LABS: ALT 23 U/L (12-78); AST 20 U/L (15-37); Albumin 2.6 g/dL (3.4-5.0); Alkaline Phosphatase 436 U/L (46-116); Anion Gap 9.5 mmol/L (3-11); BUN 10 mg/dL (7-18); Bilirubin, Total 0.2 mg/dL (0.2-1.0); CO2 27.5 mmol/L (21.0-32.0); CREATININE 0.83 mg/dL (0.55-1.02); Calcium 8.4 mg/dL (8.5-10.1); Chloride 103 mmol/L (98-107); Glucose 73 mg/dL (70-100); Potassium 3.8 mmol/L (3.5-5.1); Sodium 140 mmol/L (136-145); Total Protein 7.4 g/dL (6.4-8.2)
[2018-06-17 11:28] LABS: Absolute Eosinophil Count 0.47 k/cumm (0.0-0.7); Absolute Monocyte Count 1.26 k/cumm (0.11-0.7); Absolute Neutrophil Count 10.52 k/cumm (1.2-6.7); Atypical Lymphocytes % 3
[2018-06-17 11:29] LABS: Anisocytosis 2+; Diff Comment Manual Differential; Hypochromasia 2+; Other Cells 1; Poikilocytes 2+; Polychromasia Present
[2018-06-17 11:30] LABS: Platelet Count 1760 x1000/uL (130-400)
[2018-06-24] MEDS: Normal Saline Flush 10 ML SYR IVP (08:45)
[2018-06-24 09:08] LABS: Abs Immature Grans 0.09 k/cumm (0.0-0.09); HCT 32.5 % (36.0-46.0); HGB 10.4 g/dL (12.0-15.5); Mean Corpuscular Hemoglobin 28.1 pg (27.0-33.0); Mean Corpuscular Volume 87.8 fL (80-95); RBC Distribution Width 19.9 % (11.7-14.6); White Blood Cell Count 19.06 k/cumm (4.4-10.8)
[2018-06-24 09:19] LABS: ALT 15 U/L (12-78); AST 19 U/L (15-37); Albumin 2.6 g/dL (3.4-5.0); Alkaline Phosphatase 445 U/L (46-116); BUN 11 mg/dL (7-18); Bilirubin, Total 0.2 mg/dL (0.2-1.0); CREATININE 0.89 mg/dL (0.55-1.02); Calcium 8.7 mg/dL (8.5-10.1); Chloride 102 mmol/L (98-107); Glucose 141 mg/dL (70-100); Potassium 3.5 mmol/L (3.5-5.1); Sodium 139 mmol/L (136-145); Total Protein 7.7 g/dL (6.4-8.2)
[2018-06-24 09:32] LABS: Platelet Count 1428 x1000/uL (130-400)
[2018-06-24 09:33] LABS: Absolute Eosinophil Count 0.76 k/cumm (0.0-0.7); Absolute Lymphocyte Count 3.24 k/cumm (1.2-3.4); Absolute Monocyte Count 1.72 k/cumm (0.11-0.7); Absolute Neutrophil Count 13.15 k/cumm (1.2-6.7); Atypical Lymphocytes % 4
[2018-06-24 09:34] LABS: Anisocytosis 2+; Diff Comment Manual Differential; Hypochromasia 2+
[2018-06-24 09:36] LABS: Poikilocytes 3+
== END 2018-07-01 23:59 | disposition home or self-care (01) ==
LOC: INF 00:37
PROVIDERS: Internal Medicine Hematology & Oncology; PCP Family Medicine; Visit Provider Nurse Practitioner Adult Health
DX: C25.0 Malignant neoplasm of head of pancreas (principal); Z45.2 Encounter for adjustment and management of vascular access device
CPT/HCPCS: 36591; 80053; 85025

== ENCOUNTER 2018-07-08 02:01 | Outpatient (RCR) | payer MEDICAID, SELFPAY | END 2018-08-01 23:59 | disposition home or self-care (01) | LOC: INF 02:01 | PROVIDERS: PCP Family Medicine; Visit Provider Nurse Practitioner Adult Health | DX: R69 Illness, unspecified (principal) ==

== ENCOUNTER 2018-08-12 00:53 | Outpatient (RCR) | payer MEDICAID, SELFPAY | END 2018-08-31 23:59 | disposition home or self-care (01) | LOC: INF 00:53 | PROVIDERS: PCP Family Medicine; Visit Provider Nurse Practitioner Adult Health | DX: R69 Illness, unspecified (principal) ==